=== PATIENT | female | born 1960 | race Caucasian/White ===

== ENCOUNTER → 2019-02-09 | Outpatient (CLI) | payer OTHER ==
[~2019-02-09] MED LIST: ASPI-496 PO; BUPR150T6 PO; CHOL10003 PO; CYAN250013 PO; FENO145T30 PO; LORA-856 PO; LOVA20TA2 PO; NALT50TA PO; OMEG1CAP23 PO; TRAZ150T62 PO; TURM1POW PO
[2019-02-09 11:53] LABS: INTERNATIONAL NORMALIZED RATIO 0.97 (0.93-1.1); PROTHROMBIN TIME 10.2 Seconds (9.6-11.5)
[2019-02-09 13:23] LABS: HEMOGLOBIN A1C 5.6 % (4.2-6.3)
== END | disposition home or self-care (01) ==
LOC: STAR 10:43
PROVIDERS: ATTEND Orthopaedic Surgery
DX: Z01.818 Encounter for other preprocedural examination (principal); M16.12 Unilateral primary osteoarthritis, left hip; M25.552 Pain in left hip; Z87.891 Personal history of nicotine dependence
CPT/HCPCS: 36415; 83036; 85610; 85730; 87081; 93005